=== PATIENT | female | born 1985 | race Hispanic/Latino ===

== ENCOUNTER 2018-03-17 12:06 | Emergency (ER) | payer SELFPAY ==
[2018-03-17 12:21] VITALS: BMI 43.2
[2018-03-17 12:27] VITALS: RESP 18
[2018-03-17] MEDS ORDERED: Tmp-Smz 800 mg-160 mg DS Tab PO STA (13:28)
--- NOTE | 2018-03-17 13:54 | ED PDOC ---
Arrival/HPI - General Chief Complaint: Abnormal Skin Integrity Time Seen by Provider: 03/17/18 12:22 Historian: Patient - History of Present Illness Narrative History of Present Illness (Text): 32 year old female with no significant past medical history presents to the emergency department complaining right lower back rash x 4 days. Describes a worsening red tender area of induration with central head on right lower back that she thinks may be infected. States the pain and redness was worse yesterday. Not taking any medications for symptoms and does not have a primary doctor. States she has had abscesses before but not on her back. Denies fevers, chills, N/V, headache, dizziness, abdominal pain, numbness, paresthesias, or any other associated symptoms. NKDA Past Medical History - Provider Review Nursing Documentation Reviewed: Yes - Past History Past History: No Previous - Psychiatric Hx Substance Use: No Family/Social History - Physician Review Nursing Documentation Reviewed: Yes Family/Social History: No Known Family HX Smoking Status: Current Some Days Smoker Hx Alcohol Use: Yes Frequency of alcohol use: Socially Hx Substance Use: No Allergies/Home Meds Allergies/Adverse Reactions: Allergies No Known Allergies Allergy (Verified 03/17/18 12:20) Review of Systems - Physician Review All systems were reviewed & negative as marked: Yes - Review of Systems Constitutional: Normal. absent: Fevers Eyes: Normal. absent: Vision Changes ENT: Normal. absent: Sore Throat, Sinus Congestion Respiratory: Normal. absent: SOB, Cough Cardiovascular: Normal. absent: Chest Pain, Palpitations, Syncope Gastrointestinal: Normal. absent: Abdominal Pain, Nausea, Vomiting Genitourinary Female: Normal. absent: Dysuria, Frequency Musculoskeletal: Back Pain Skin: Abscess, Cellulitis Neurological: Normal. absent: Headache, Dizziness Endocrine: Normal Hemo/Lymphatic: Normal Psychiatric: Normal Physical Exam Vital Signs Reviewed: Yes Vital Signs Temp Pulse Resp BP Pulse Ox 03/17/18 12:21 98.2 F 89 18 127/79 98 Temperature: Afebrile Blood Pressure: Normal Pulse: Regular Respiratory Rate: Normal Appearance: Positive for: Well-Appearing, Non-Toxic, Comfortable Pain Distress: None Mental Status: Positive for: Alert and Oriented X 3 - Systems Exam Head: Present: Atraumatic, Normocephalic Pupils: Present: PERRL Extroacular Muscles: Present: EOMI Conjunctiva: Present: Normal Mouth: Present: Moist Mucous Membranes Neck: Present: Normal Range of Motion Respiratory/Chest: Present: Clear to Auscultation, Good Air Exchange. No: Respiratory Distress, Accessory Muscle Use Cardiovascular: Present: Regular Rate and Rhythm, Normal S1, S2, Peripheal Pulses Present. No: Murmurs Abdomen: Present: Normal Bowel Sounds. No: Tenderness, Distention, Peritoneal Signs, Rebound, Guarding Back: Present: Other (12cm x 8cm area of erythema, warmth, and tenderness over right lower back, with 6x6cm area of induration with central punctate head. No fluctuance, no streaking, no drainage. ). No: CVA Tenderness, Midline Tenderness, Paraspinal Tenderness Upper Extremity: Present: Normal Inspection, Normal ROM, NORMAL PULSES, Neurovascularly Intact, Capillary Refill < 2s. No: Cyanosis, Edema Lower Extremity: Present: Normal Inspection, NORMAL PULSES, Normal ROM, Neurov ascularly Intact, Capillary Refill < 2 s. No: Edema Neurological: Present: GCS=15, CN II-XII Intact, Speech Normal, Motor Func Grossly Intact, Normal Sensory Function, Gait Normal Skin: Present: Warm, Dry, Erythematous, Induration, Hot, Other (See Back Exam). No: Rashes Psychiatric: Present: Alert, Oriented x 3, Normal Insight, Normal Concentration, Normal Affect, Normal Mood Medical Decision Making ED Course and Treatment: Initial Plan: * Bedside Ultrasound * Bactrim * Keflex Patient very well appearing, afebrile. No fluctuance of the tender area on physical exam. 03/17/18 13:54 Ultrasound performed at bedside by ED attending Dr. Balnco. No fluid collection visualized. No I&D indicated. Recommends outpatient oral antibiotics. Patient has NKDA. Patient instructed to apply warm compresses to the area 4-5 times daily in addition to antibiotics. Advised to return or followup in clinic in 2 days to ensure improvement, as patient does not have a primary physician. Plan of care discussed with patient, and strict instructions given regarding pr escriptions, importance of follow up, and signs to return to Emergency Department, to include fever, chills, worsening pain, worsening redness, or any other new/worsening symptoms. Patient verbalizes understanding of discussion. Patient A&Ox3, ambulating with steady gait, stable for discharge home. Disposition/Present on Arrival - Present on Arrival Any Indicators Present on Arrival: No History of DVT/PE: No History of Uncontrolled Diabetes: No Urinary Catheter: No History of Decub. Ulcer: No History Surgical Site Infection Following: None - Disposition Have Diagnosis and Disposition been Completed?: Yes Diagnosis: Furuncle Disposition: HOME/ ROUTINE Disposition Time: 14:29 Patient Plan: Discharge Condition: GOOD Discharge Instructions (ExitCare): Boil Additional Instructions: Take Keflex every 6 hours for 7 days Take Bactrim every 12 hours for 7 days Apply warm compresses 4-5 times daily Return in 2 days for reassessment Followup with clinic or primary doctor within 2 days Return to ER with any new/worsening symptoms Prescriptions: Cephalexin [Keflex] 500 mg PO Q6 7 Days #27 capsule Sulfamethoxazole/Trimethoprim [Bactrim DS 800 mg-160 mg] 1 tab PO Q12H #13 tab Referrals: [facility] [place]] - Follow up with primary Alexandrea Orellana MD [Medical Doctor] - Follow up with primary Forms: [facility] (Danish)
[2018-03-17 14:08] VITALS: BP 131/77; PULSE 88; TEMP 98.1; O2SAT 99
== END 2018-03-17 14:29 | disposition home or self-care (01) ==
LOC: ED 12:06
DX: L02.222 Furuncle of back [any part, except buttock and flank] (principal)

== ENCOUNTER 2018-03-20 06:54 | Emergency (ER) | payer SELFPAY ==
[2018-03-20 06:54] VITALS: BMI 43.2
[2018-03-20 06:59] VITALS: RESP 18
[2018-03-20 07:42] VITALS: BP 135/79; PULSE 79; TEMP 98.5; O2SAT 99
--- NOTE | 2018-03-20 13:54 | ED PDOC ---
Arrival/HPI - General Chief Complaint: Abnormal Skin Integrity Time Seen by Provider: 03/20/18 07:12 Historian: Patient - History of Present Illness Narrative History of Present Illness (Text): 03/20/18 07:25 32 year old female with no significant past medical history presents to the emergency department for evaluation of abscess on her back today. Patient states she has been taking antibiotics for the past two days and applying warm packs to the site. Patient reports pain to the site and denies any drainage. Patient denies any fevers, chills, headache, dizziness, chest pain, shortness of breath, dyspnea on exertion, cough, abdominal pain, nausea, vomiting, diarrhea, back pain, neck pain, or any other complaints. Time/Duration: < week (2 days) Symptom Onset: Gradual Symptom Course: Unchanged Activities at Onset: Light Context: Home Past Medical History - Provider Review Nursing Documentation Reviewed: Yes - Past History Past History: No Previous - Psychiatric Hx Substance Use: No Family/Social History - Physician Review Nursing Documentation Reviewed: Yes Family/Social History: Unknown Family HX Smoking Status: Current Some Days Smoker Hx Alcohol Use: Yes Hx Substance Use: No Allergies/Home Meds Allergies/Adverse Reactions: Allergies No Known Allergies Allergy (Verified 03/17/18 12:20) Review of Systems - Physician Review All systems were reviewed & negative as marked: Yes - Review of Systems Constitutional: absent: Fevers Respiratory: absent: SOB, Cough, Wheezing Cardiovascular: absent: Chest Pain Gastrointestinal: absent: Abdominal Pain, Diarrhea, Nausea, Vomiting Genitourinary Female: absent: Frequency, Hematuria, Urine Output Changes Musculoskeletal: absent: Back Pain, Neck Pain Skin: Abscess (abscess on back, no drainage). absent: Rash Physical Exam Vital Signs Reviewed: Yes Vital Signs Temp Pulse Resp BP Pulse Ox 03/20/18 07:41 98.5 F 79 18 135/79 99 03/20/18 06:59 98.6 F 90 18 139/94 H 100 Temperature: Afebrile Blood Pressure: Normal Pulse: Regular Respiratory Rate: Normal Appearance: Positive for: Well-Appearing, Non-Toxic, Comfortable Pain Distress: None Mental Status: Positive for: Alert and Oriented X 3 - Systems Exam Head: Present: Atraumatic, Normocephalic Pupils: Present: PERRL Extroacular Muscles: Present: EOMI Conjunctiva: Present: Normal Neck: Present: Normal Range of Motion Respiratory/Chest: Present: Clear to Auscultation, Good Air Exchange. No: Respiratory Distress, Accessory Muscle Use Cardiovascular: Present: Regular Rate and Rhythm, Normal S1, S2. No: Murmurs Abdomen: No: Tenderness, Distention, Peritoneal Signs Back: Present: Other (indurated 3 cm abscess, warm to touch, no drainage) Upper Extremity: Present: Normal Inspection. No: Cyanosis, Edema Lower Extremity: Present: Normal Inspection. No: Edema Neurological: Present: GCS=15, CN II-XII Intact, Speech Normal Skin: Present: Warm, Dry, Normal Color. No: Rashes Psychiatric: Present: Alert, Oriented x 3, Normal Insight, Normal Concentration Medical Decision Making ED Course and Treatment: 03/20/18 07:25 Impression: 32 year old female presents to the emergency department for evaluation of an abscess on her back today. Plan: -- Motrin Tab -- Reassess and disposition Prior Visits: Notes and results from previous visits were reviewed. Progress Notes: 03/20/18 14:06 Patient was made aware that the abscess is not ready for drainage. Patient was advised to continue warm packs, pain patch and pain medication and asked to return to the clinic in 3-4 days for follow-up. - Medication Orders Current Medication Orders: Discontinued Medications Ibuprofen (Motrin Tab) 600 mg PO STAT STA Stop: 03/20/18 07:29 Last Admin: 03/20/18 07:33 Dose: 600 mg MAR Pain/Vitals Document 03/20/18 07:33 BB (Rec: 03/20/18 07:34 BB [id number]) Pain Reassessment Is This A Pain ReAssessment? No Sleep Is patient sleeping during reassessment? No Presence of Pain Presence of Pain Yes Pain Scale Used Protocol: PSCALES Pain Scale Used Numeric Location Left, Right or Bilateral Right Upper or Lower Lower Pain Location Body Site Back Description Constant Intensity 9 Scale Used Numeric - Scribe Statement The provider has reviewed the documentation as recorded by the Románibe Bassam willis with Yuniel All medical record entries made by the Scribe were at my direction and personally dictated by me. I have reviewed the chart and agree that the record accurately reflects my personal performance of the history, physical exam, medical decision making, and the department course for this patient. I have also personally directed, reviewed, and agree with the discharge instructions and disposition. Disposition/Present on Arrival - Present on Arrival Any Indicators Present on Arrival: Yes History of DVT/PE: No History of Uncontrolled Diabetes: No Urinary Catheter: No History of Decub. Ulcer: No History Surgical Site Infection Following: None - Disposition Have Diagnosis and Disposition been Completed?: Yes Diagnosis: Abscess, Cellulitis Disposition: HOME/ ROUTINE Disposition Time: 07:15 Condition: GOOD Discharge Instructions (ExitCare): Skin Abscess, Cellulitis (ED) Additional Instructions: ASA SIMMONS, thank you for letting us take care of you today. Your provider was Micha Sol DO and you were treated for an abscess. The emergency medical care you received today was directed at your acute symptoms. If you were prescribed any medication, please fill it and take as directed. It may take several days for your symptoms to resolve. Return to the Emergency Department if your symptoms worsen, do not improve, or if you have any other problems. Please contact your doctor or call one of the physicians/clinics you have been referred to that are listed on the Patient Visit Information form that is included in your discharge packet. Bring any paperwork you were given at discharge with you along with any medications you are taking to your follow up visit. Our treatment cannot replace ongoing medical care by a primary care provider outside of the emergency department. Thank you for allowing the [facility] team to be part of your care today. Continue with warm compresses to the area as much as possible throughout the d ay. Follow up with our clinic in 3-4 days for re-evaluation and further management. Prescriptions: Ibuprofen [Motrin] 600 mg PO Q6 PRN #20 tab PRN Reason: Pain, Moderate (4-7) Lidocaine 5% [Lidoderm] 1 ea TD BID #1 unit Referrals: [facility] [Outside] - Follow up with primary Alexandrea Orellana MD [Medical Doctor] - Follow up with primary Forms: [employer] (Mozambican)
== END 2018-03-20 07:38 | disposition home or self-care (01) ==
LOC: ED 06:54
DX: L02.212 Cutaneous abscess of back [any part, except buttock and flank] (principal); L03.312 Cellulitis of back [any part except buttock and flank]